=== PATIENT | male | born 2000 | race Caucasian/White ===

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

== ENCOUNTER 2021-12-21 05:39 | Emergency (ER) | payer OTHER ==
[~2021-12-21] VITALS: Ht 180.3 cm; Wt 119.1 kg
[2021-12-21] MEDS ORDERED: BUDESONIDE-FO10.2 G1 INH (05:43)
[2021-12-21] MEDS ORDERED: PROVENTIL HFA6.7 GM INH (05:43)
[2021-12-21 06:13] LABS: BASO # 0.1 10*3/uL (0.0-0.1); BASO % 0.7 % (0.0-1.0); EOS # 0.1 10*3/uL (0.0-0.4); HEMATOCRIT 44.6 % (42.0-52.0); LYMPH # 1.9 10*3/uL (1.3-4.4); LYMPH % 15.6 % (27.0-41.0); MEAN CELL VOLUME 84.6 fl (80.0-94.0); MEAN CORPUSCULAR HGB 29.6 pg (27.0-31.0); MEAN PLATELET VOLUME 10.2 fl (9.6-12.3); MONO # 0.8 10*3/uL (0.1-1.0); MONO % 6.3 % (3.0-9.0); NEUT # 9.4 10*3/uL (2.3-7.9); NEUT % 75.9 % (47.0-73.0); PLATELET COUNT AUTOMATED 243 10*3/uL (130-400); RED BLOOD COUNT 5.27 10*6/uL (4.50-5.90); RED CELL DISTRI WIDTH 12.5 % (0-14.5); WHITE BLOOD COUNT 12.3 10*3/uL (4.8-10.8)
[2021-12-21 06:20] LABS: ALKALINE PHOSPHATASE 138 U/L (45-117); BUN 15 mg/dl (7-24); CHLORIDE 109 mmol/L (98-107); CREATININE 1.12 mg/dL (0.70-1.30); POTASSIUM 3.7 mmol/L (3.5-5.1); SGOT/AST 20 IU/L (3-35); SGPT/ALT 42 U/L (12-78); SODIUM 140 mmol/L (136-145); TOTAL PROTEIN 7.4 gm/dL (6.4-8.2)
[2021-12-21 10:12] LABS: BILIRUBIN Negative (Negative); BLOOD Negative (Negative); CLARITY Clear (Clear); COLOR Yellow (Yellow); GLUCOSE Negative (Negative); KETONE Negative (Negative); LEUKO ESTERASE Negative (Negative); NITRITE Negative (Negative); PH 7.5 (4.5-8.0); SPECIFIC GRAVITY 1.025 (1.001-1.030)
[2021-12-21 10:21] LABS: URINE AMPHETAMINES < 1000 (1000ng/ml); URINE BARBITURATES < 200 (200ng/ml); URINE BENZODIAZEPINES < 200 (200ng/ml); URINE CANNABINOIDS (THC) < 50 (50ng/ml); URINE COCAINE < 300 (300ng/ml); URINE METHADONE < 300 (300ng/ml); URINE OPIATES < 300 (300ng/ml)
[2021-12-21 10:22] LABS: URINE PHENCYCLIDINE < 25 (25ng/ml)
[2021-12-21 10:31] LABS: BACTERIA 1+; EPITHELIAL CELLS 0-2; MUCOUS 2+
== END 2021-12-21 18:19 | disposition short-term general hospital (02) ==
LOC: ED 05:39
PROVIDERS: Emergency Medicine
DX: R42 Dizziness and giddiness (principal); R51.9 Headache, unspecified; R11.2 Nausea with vomiting, unspecified; Z91.013 Allergy to seafood; Z79.899 Other long term (current) drug therapy

== ENCOUNTER 2025-06-10 14:11 | Emergency (ER) | payer OTHER ==
[~2025-06-10] VITALS: Ht 180.3 cm; Wt 115.7 kg
[~2025-06-10 14:11] MED LIST changes: +BUDESONIDE-FO10.2 G1 INH; +PROVENTIL HFA6.7 GM INH
[2025-06-10] MEDS ORDERED: PANTOPRAZOLE SO40 MG PO (14:23)
[2025-06-10] MEDS ORDERED: ASPIRIN81 M1 PO (14:24)
[2025-06-10] MEDS ORDERED: Ondansetron Hydrochloride 4 MG TAB PO ONE (15:00)
[2025-06-10] MEDS ORDERED: Acetaminophen/Oxycodone 5 MG/325 MG TABLET PO ONE (15:00)
[2025-06-10] MEDS ORDERED: AMOX-CLAV 875-1 EACH PO (15:32)
[2025-06-10] MEDS ORDERED: Ciprofloxacin Hydrochloride 500 MG TAB PO ONE (15:35)
== END 2025-06-10 15:39 | disposition home or self-care (01) ==
LOC: ED 14:11
DX: S60.453A Superficial foreign body of left middle finger, initial encounter (principal); J45.909 Unspecified asthma, uncomplicated; Z91.013 Allergy to seafood; Z79.899 Other long term (current) drug therapy; Z79.82 Long term (current) use of aspirin; X58.XXXA Exposure to other specified factors, initial encounter; Y93.89 Activity, other specified; Y92.89 Other specified places as the place of occurrence of the external cause; Y99.8 Other external cause status